=== PATIENT | male | born 1965 | race African-American/Black ===

== ENCOUNTER 2020-02-19 08:36 | Inpatient (IN) | payer MEDICAID, OTHER ==
[~2020-02-19] VITALS: Ht 170.2 cm; Wt 77.1 kg
[2020-02-19 09:07] LABS: CHLORIDE 102 mEq/L (98-107)
[2020-02-19 09:10] LABS: BASOPHILS % 0.7 % (0.0-2.0); EOSINOPHILS % 1.1 % (0.0-5.0); HEMATOCRIT. 38.6 % (42.0-52.0); HEMOGLOBIN. 12.8 g/dL (14.0-18.0); LYMPHOCYTES % 24.7 % (20.0-50.0); MEAN CORPUSCULAR HEMOGLOBIN 26.6 pg (28.0-32.0); MEAN CORPUSCULAR VOLUME 80.2 fL (80.0-94.0); MEAN PLATELET VOLUME 7.9 fl (7.4-10.4); MONOCYTES % 9.2 % (2.0-8.0); NEUTROPHILS % 64.3 % (40.0-76.0); PLATELET 260 x1000/uL (130-400); RED BLOOD CELL COUNT 4.81 mill/uL (4.7-6.1); RED CELL DISTRIBUTION WIDTH 16.5 % (11.6-14.6)
[2020-02-19] MEDS ORDERED: LIDOCAINE 1%/EPI 1:100,000 10 ML VIAL IJ ONE (10:00)
[2020-02-19] MEDS ORDERED: LIDOCAINE HCL/EPINEPHRINE 1%-EPI 1:100,000 20 ML VIAL INFIL NR (10:15)
[2020-02-19] MEDS ORDERED: KETOROLAC 15MG/ML VIAL IV PRN (11:15)
[2020-02-19] MEDS ORDERED: ONDANSETRON HCL 4MG/2ML INJ IV PRN (11:15)
[2020-02-19] MEDS ORDERED: MAGNESIUM/ALUMINUM HYDROXIDE/SIMETHICONE 30ML UDC PO PRN (11:15)
[2020-02-19] MEDS ORDERED: IPRATROPIUM/ALBUTEROL 0.5-3(2.5)MG/3ML NEB ORI PRN (11:15)
[2020-02-19] MEDS ORDERED: ACETAMINOPHEN 325MG TABLET PO PRN ×2 (11:15)
[2020-02-19] MEDS ORDERED: CLONIDINE 0.1MG TABLET PO PRN (11:15)
[2020-02-19] MEDS ORDERED: NITROGLYCERIN 0.4MG TABLET SL SL PRN (11:15)
[2020-02-19] MEDS ORDERED: GUAIFENESIN 200MG/10ML SUGAR FREE UDC PO PRN (11:15)
[2020-02-19] MEDS ORDERED: DOCUSATE SODIUM 100MG CAPSULE PO PRN (11:15)
[2020-02-19 11:26] LABS: ETHANOL BLOOD < 10 mg/dL
[2020-02-19 11:29] LABS: LDL CHOLESTEROL 135 mg/dL (5-100)
[2020-02-19 11:30] LABS: HDL CHOLESTEROL 40 mg/dL (40-59)
[2020-02-19] MEDS ORDERED: POTASSIUM CHLORIDE 20MEQ TABLET SR PO SCH (11:30)
[2020-02-19 11:42] LABS: *AMPHETAMINES SCREEN URINE NEGATIVE (NEGATIVE); *BARBITURATES SCREEN URINE NEGATIVE (NEGATIVE); *BENZODIAZEPINES SCREEN URINE NEGATIVE (NEGATIVE); *COCAINE SCREEN URINE NEGATIVE (NEGATIVE); METHADONE URINE SCREEN NEGATIVE (NEGATIVE); OPIATES URINE SCREEN NEGATIVE (NEGATIVE)
[2020-02-19 11:43] LABS: CANNABINOID URINE SCREEN NEGATIVE (NEGATIVE); PHENCYCLIDINE URINE SCREEN NEGATIVE (NEGATIVE)
[2020-02-19] MEDS: ENOXAPARIN 40MG/0.4ML SYR SUBCUT SCH (13:35)
[2020-02-19] MEDS: ASPIRIN 81MG EC TABLET PO SCH (13:35)
[2020-02-19 14:39] LABS: CREATINE KINASE 178 IU/L (39-308)
[2020-02-19 14:40] LABS: CREATINE KINASE MB FRACTION 4.8 ng/mL (0.5-3.6)
[2020-02-19] MEDS ORDERED: MAGNESIUM 1 G PREMIX 100 ML IV ONE (20:00)
[2020-02-19] MEDS ORDERED: ZOLPIDEM TARTRATE 5MG TABLET PO PRN (20:00)
[2020-02-19 20:11] LABS: TOTAL IRON BINDING CAPACITY 234 ug/dL (250-450)
[2020-02-19 21:11] LABS: FOLIC ACID (FOLATE) SERUM 4.2 ng/mL (>5.38)
[2020-02-19 21:40] VITALS: BP 121/75
[2020-02-19 22:47] VITALS: BP 121/75
[2020-02-19 23:18] LABS: CREATINE KINASE 215 IU/L (39-308)
[2020-02-19 23:19] LABS: CREATINE KINASE MB FRACTION 3.2 ng/mL (0.5-3.6)
[2020-02-20] VITALS (7 sets, daily range): BP systolic 117–134; BP diastolic 68–123
[2020-02-20 06:48] LABS: CHLORIDE 107 mEq/L (98-107)
[2020-02-20 06:56] LABS: PHOSPHORUS 1.2 mg/dL (2.5-4.9)
[2020-02-20 07:04] LABS: BASOPHILS % 0.5 % (0.0-2.0); EOSINOPHILS % 0.8 % (0.0-5.0); MEAN CORPUSCULAR HEMOGLOBIN 26.5 pg (28.0-32.0); MEAN CORPUSCULAR VOLUME 79.1 fL (80.0-94.0); MEAN PLATELET VOLUME 7.7 fl (7.4-10.4); MONOCYTES % 14.8 % (2.0-8.0); NEUTROPHILS % 62.9 % (40.0-76.0); PLATELET 230 x1000/uL (130-400); RED BLOOD CELL COUNT 4.54 mill/uL (4.7-6.1); RED CELL DISTRIBUTION WIDTH 16.1 % (11.6-14.6)
[2020-02-20] MEDS: ENOXAPARIN 40MG/0.4ML SYR SUBCUT SCH (08:56)
[2020-02-20] MEDS: ASPIRIN 81MG EC TABLET PO SCH (08:56)
[2020-02-20] MEDS ORDERED: FOLIC ACID 1 MG in SODIUM CHLORIDE 0.9% 500 ML IV SCH (12:00)
[2020-02-21] VITALS: BP 129/93
[2020-02-21 04:00] VITALS: BP 131/90
[2020-02-21 08:00] VITALS: BP 129/87
[2020-02-21] MEDS: ASPIRIN 81MG EC TABLET PO SCH (08:51)
[2020-02-21] MEDS: ENOXAPARIN 40MG/0.4ML SYR SUBCUT SCH (08:51)
[2020-02-21] MEDS ORDERED: FOLIC ACID 1MG TABLET PO SCH (09:00)
[2020-02-21 10:43] VITALS: BP 129/87
== END 2020-02-21 11:35 | disposition home or self-care (01) | DRG 312 ==
LOC: ER 08:36 → 5WST 10:31 → ENRESERV 20:55
PROVIDERS: ADMIT Internal Medicine; ATTEND Internal Medicine
PROC: 0HQ0XZZ Repair Scalp Skin, External Approach (ICD-10-PCS; principal; 2020-02-19)
DX: R55 Syncope and collapse (principal); S01.01XA Laceration without foreign body of scalp, initial encounter; E83.42 Hypomagnesemia; E87.6 Hypokalemia; E53.8 Deficiency of other specified B group vitamins; D63.8 Anemia in other chronic diseases classified elsewhere; I10 Essential (primary) hypertension; X58.XXXA Exposure to other specified factors, initial encounter; Y93.89 Activity, other specified; Y92.89 Other specified places as the place of occurrence of the external cause; Y99.8 Other external cause status
CPT/HCPCS: 36415; 71045; 80053; 80061; 80305; 80320; 82270; 82550; 82553; 82607; 82746; 83036; 83540; 83550; 83735; 84100; 84484; 85025; 93005; 93970; 97162; 99285; J1650; J3475; J3490; J7040; G0480